=== PATIENT | male | born 1980 | race American Indian/Alaskan Native ===

== ENCOUNTER 2019-02-18 15:01 | Emergency (ER) | payer SELFPAY ==
[2019-02-18 15:11] VITALS: BMI 23.5
[2019-02-18 15:15] VITALS: RESP 18; O2SAT 100
[2019-02-18 17:38] VITALS: BP 133/89; PULSE 89; TEMP 98.2
--- NOTE | 2019-02-18 18:28 | ED PDOC ---
Arrival/HPI - General Chief Complaint: Substance Abuse Historian: Patient - History of Present Illness Narrative History of Present Illness (Text): 02/18/19 18:26 38 year old M with no significant pmh presents for evaluation of substance abuse. Patient reports using PCP and ETOH prior to arrival. He denies any S.I., H.I., plan or anxiety. Patient denies any fevers, chills, headache, dizziness, chest pain, shortness of breath, dyspnea on exertion, cough, diaphoresis, abdominal pain, nausea, vomiting, diarrhea, back pain, neck pain, or any other complaint. Time/Duration: Prior to Arrival Symptom Onset: Sudden Symptom Course: Unchanged Activities at Onset: Light Context: Home Past Medical History - Provider Review Nursing Documentation Reviewed: Yes - Psychiatric Hx Psychophysiologic Disorder: (denies) Hx Substance Use: Yes - Anesthesia Hx Anesthesia: No Family/Social History - Physician Review Nursing Documentation Reviewed: Yes Family/Social History: Unknown Family HX Smoking Status: Heavy Smoker > 10 Cigarettes Daily Hx Alcohol Use: Yes Frequency of alcohol use: Few days per week Hx Substance Use: Yes Substance used: PCP Allergies/Home Meds Allergies/Adverse Reactions: Allergies No Known Allergies Allergy (Verified 02/18/19 16:05) Review of Systems - Physician Review All systems were reviewed & negative as marked: Yes - Review of Systems Constitutional: absent: Fevers ENT: absent: Sore Throat, Rhinorrhea, Epistaxis Respiratory: absent: SOB, Cough Cardiovascular: absent: Chest Pain, Palpitations Gastrointestinal: absent: Abdominal Pain, Diarrhea, Nausea, Vomiting Genitourinary Male: absent: Dysuria Musculoskeletal: absent: Arthralgias, Back Pain, Neck Pain, Myalgias Skin: absent: Rash, Laceration, Abscess, Ulcer, Cellulitis Neurological: absent: Headache, Dizziness, Facial Droop, Disequilibrium Psychiatric: absent: Anxiety, Suicidal Ideation Physical Exam Vital Signs Reviewed: Yes Vital Signs Temp Pulse Resp BP Pulse Ox 02/18/19 17:38 98.2 F 89 18 133/89 100 02/18/19 15:15 98.8 F 83 18 148/95 H 100 Temperature: Afebrile Blood Pressure: Normal Pulse: Regular Respiratory Rate: Normal Appearance: Positive for: Well-Appearing, Non-Toxic, Comfortable Pain Distress: None Mental Status: Positive for: Alert and Oriented X 3 - Systems Exam Head: Present: Atraumatic, Normocephalic Pupils: Present: PERRL Extroacular Muscles: Present: EOMI Conjunctiva: Present: Normal Mouth: Present: Moist Mucous Membranes Neck: Present: Normal Range of Motion Respiratory/Chest: Present: Clear to Auscultation, Good Air Exchange. No: Respiratory Distress, Accessory Muscle Use Cardiovascular: Present: Regular Rate and Rhythm, Normal S1, S2. No: Murmurs Abdomen: No: Tenderness, Distention, Peritoneal Signs Back: Present: Normal Inspection Upper Extremity: Present: Normal Inspection. No: Cyanosis, Edema Lower Extremity: Present: Normal Inspection. No: Edema Neurological: Present: GCS=15, CN II-XII Intact, Speech Normal Skin: Present: Warm, Dry, Normal Color. No: Rashes Psychiatric: Present: Alert, Oriented x 3, Normal Insight, Normal Concentration Medical Decision Making ED Course and Treatment: 02/18/19 18:28 Impression: 38 year old M presents for evaluation of substance abuse. Patient reports using PCP and ETOH prior to arrival. He denies any S.I., H.I., plan or anxiety. Plan: -- Reassess and disposition Prior Visits: Notes and results from previous visits were reviewed. Progress Notes: EKG shows NSR at 75 BPM with normal QRS, normal axis, normal intervals, no acute ST/T wave abnormalities. - Scribe Statement The provider has reviewed the documentation as recorded by the Colby Colvin All medical record entries made by the Scribe were at my direction and personally dictated by me. I have reviewed the chart and agree that the record a ccurately reflects my personal performance of the history, physical exam, medical decision making, and the department course for this patient. I have also personally directed, reviewed, and agree with the discharge instructions and disposition. Disposition/Present on Arrival - Present on Arrival Any Indicators Present on Arrival: No History of DVT/PE: No History of Uncontrolled Diabetes: No Urinary Catheter: No History of Decub. Ulcer: No History Surgical Site Infection Following: None - Disposition Have Diagnosis and Disposition been Completed?: Yes Diagnosis: Drug abuse Disposition: HOME/ ROUTINE Disposition Time: 16:30 Condition: IMPROVED Discharge Instructions (ExitCare): Drug Abuse and Drug Addiction (DC) Additional Instructions: DESHAWN PEREZ, thank you for letting us take care of you today. The emergency medical care you received today was directed at your acute symptoms. If you were prescribed any medication, please fill it and take as directed. It may take several days for your symptoms to resolve. Return to the Emergency Department if your symptoms worsen, do not improve, or if you have any other problems. Please contact your doctor or call one of the physicians/clinics you have been referred to that are listed on the Patient Visit Information form that is included in your discharge packet. Bring any paperwork you were given at discharge with you along with any medications you are taking to your follow up visit. Our treatment cannot replace ongoing medical care by a primary care provider outside of the emergency department. Thank you for allowing the [facility] team to be part of your care today. Follow up with your doctor or our clinic for outpatient care. Referrals: [facility] [Outside] - Follow up with primary Maria Ines Mujica MD [Medical Doctor] - Follow up with primary Forms: [employer] ([place])
--- NOTE | 2019-02-19 10:09 | CARD ---
APPROVED REPORT Date of service: 02/18/2019 EKG Measurement Heart [id number] <Conclusion> Normal sinus rhythm Normal ECG
== END 2019-02-18 18:34 | disposition home or self-care (01) ==
LOC: ED 15:01
DX: F19.10 Other psychoactive substance abuse, uncomplicated (principal); F17.210 Nicotine dependence, cigarettes, uncomplicated